=== PATIENT | female | born 1960 | race Caucasian/White ===

== ENCOUNTER 2016-12-10 18:55 | Emergency (ER) | payer MEDICARE ==
[~2016-12-10] VITALS: Ht 162.5 cm; Wt 61.2 kg
[~2016-12-10 18:55] MED LIST: AMOXICILLIN500 MG PO; ASPI-COR81 M1 PO; ASPIRIN ADULT L81 M2 PO; ATIVAN1 MG PO; AUGMENTIN 875875 MG PO; BUPROPION HCL150 M2 PO; CIPRO500 MG PO; CLONAZEPAM1 MG PO; CLONAZEPAM2 MG PO; DELTASONE20 M1 PO; DONEPEZIL HCL10 MG PO; EXELON4.6 MG/24 T; EXELON9.5 MG/24 T; FLONASE 0.05% 121 EA NAS; HYDROCHLOROTH12.5 MG PO; KEFLEX500 MG PO; LATU80TA PO; LIPITOR40 MG PO; LISINOPRIL HCTZ1 TA1 PO; LISINOPRIL40 MG PO; METHIMAZOLE10 MG PO; MIRALAX17 GM/DOSE PO; MIRTAZAPINE15 MG PO; MIRTAZAPINE30 MG PO; MOTRIN 800 MG E4 TAB PO; NORVASC2.5 MG PO; PEPCID20 MG PO; PREDNISONE10 MG PO; REMERON15 MG PO; REMERON30 MG PO; SEROQUEL100 MG PO; SEROQUEL50 MG PO; TAPAZOLE10 MG PO; TOBREX OPHTH S2.5 ML OPH; TOPAMAX25 MG PO; TOPAMAX50 MG PO; TRAMADOL50 MG PO; ULTRAM50 MG PO; VICODIN 5/500 505 MG PO; VOLTAREN75 MG PO; WELLBUTRIN100 MG PO; ZITHROMAX250 MG PO; ZOFRAN4 MG PO
== END 2016-12-10 20:46 | disposition home or self-care (01) ==
LOC: ED 18:55
DX: R13.10 Dysphagia, unspecified (principal); I10 Essential (primary) hypertension; E78.5 Hyperlipidemia, unspecified; Z88.6 Allergy status to analgesic agent; Z88.2 Allergy status to sulfonamides; Z79.899 Other long term (current) drug therapy

== ENCOUNTER → 2016-12-28 | Day surgery (SDC) | payer MEDICARE ==
[~2016-12-28] VITALS: Ht 162.5 cm; Wt 77.1 kg
[~2016-12-28] MED LIST changes: +MELATONIN10 M2 PO; +OMEPRAZOLE20 M2 PO; +VITAMIN D5000 UNI1 PO
--- NOTE | ~2016-12-28 | O ---
[place], [place] OPERATIVE NOTE NAME: SALOME CONTRERAS UNIT #: [id number] ROOM: DOCTOR: ADAM POPE MD BIRTHDATE: [birth year] DOS: GASTROENDOSCOPIC REPORT A 56-year-old who has presented with chief complaint of dyspepsia, dysphagia to solid food. ALLERGIES: TYLENOL AND SULFA. FAMILY HISTORY: Mother with colonic carcinoma. PAST SURGICAL HISTORY: Hysterectomy, tonsillectomy, adenoidectomy and neck disk and anna marie. PAST MEDICAL HISTORY: Hypertension, hypercholesterolemia, migraine, cephalalgia. PROCEDURE: Today's procedure part of investigation is panendoscopy plus esophageal dilation to size 18. PREMEDICATION: Versed and Diprivan. SCOPE: Olympus forward-viewing gastroscope Q10 video. REPORT: After putting the patient in the left lateral position and after application of lubricant to the scope, scope was introduced; thereafter, under direct visualization, advanced through the length of the esophagus without difficulty. Esophagus cervical and thoracic distally carefully examined. Gastric pouch was entered. Duodenal bulb, second and third part within normal limit. Antrum was biopsied for H. pylori, balloon size 18 swept through the esophagus. Highest point of resistance is cervical esophagus, dilated to size 18. The patient extubated, tolerated procedure well. IMPRESSION: Benign esophageal stricture, status post balloon dilation to size 18, gastritis. PLAN AND DISCUSSION: We are going to start her on omeprazole 20 mg 1 daily and clinically reassess. [place], [place] OPERATIVE NOTE NAME: SALOME CONTRERAS UNIT #: [id number] ROOM: DOCTOR: ADAM POPE MD BIRTHDATE: [birth year] ADAM POPE MD CM:OPRECORD:OPERATIVE NOTE [id number] ADAM POPE MD 12/28/16 1545 interface
[2016-12-28 12:45] VITALS: BP 120/80
[2016-12-28 13:45] VITALS: BP 92/60
[2016-12-28 14:00] VITALS: BP 92/60
[2016-12-28 14:17] VITALS: BP 92/60
== END | disposition home or self-care (01) ==
LOC: SDC 12-25 12:30
DX: K22.2 Esophageal obstruction (principal); K29.50 Unspecified chronic gastritis without bleeding; Z88.2 Allergy status to sulfonamides; Z88.8 Allergy status to other drugs, medicaments and biological substances; I10 Essential (primary) hypertension; E78.00 Pure hypercholesterolemia, unspecified; G43.909 Migraine, unspecified, not intractable, without status migrainosus; Z80.0 Family history of malignant neoplasm of digestive organs; Z90.710 Acquired absence of both cervix and uterus; F41.9 Anxiety disorder, unspecified; F32.9 Major depressive disorder, single episode, unspecified; Z90.49 Acquired absence of other specified parts of digestive tract; Z79.899 Other long term (current) drug therapy

== ENCOUNTER → 2017-01-01 | Outpatient (CLI) | payer MEDICARE ==
[2017-01-01 12:12] LABS: ALBUMIN 3.9 gm/dl (3.1-4.5); ALKALINE PHOSPHATASE 88 U/L (45-117); BILIRUBIN, DIRECT 0.2 mg/dL (0.0-0.2); BUN 15 mg/dl (7-24); CHLORIDE 103 mmol/L (98-107); CHOLESTEROL 171 mg/dL (<200); CREATININE 0.99 mg/dL (0.55-1.02); FREE T4 0.98 ng/dl (0.76-1.46); HDL CHOLESTEROL 76 mg/dl (40-60); LDL CHOLESTEROL 80 mg/dL (9-159); POTASSIUM 3.5 mmol/L (3.5-5.1); SGOT/AST 20 IU/L (3-35); SGPT/ALT 20 U/L (12-78); SODIUM 139 mmol/L (136-145); TOTAL PROTEIN 7.5 gm/dL (6.4-8.2); TRIGLYCERIDES 74 mg/dl (<150); VLDL CHOLESTEROL 15 mg/dL (6-40)
== END | disposition home or self-care (01) ==
LOC: LAB 11:22
PROVIDERS: Internal Medicine
DX: E78.5 Hyperlipidemia, unspecified (principal); E55.9 Vitamin D deficiency, unspecified; E04.1 Nontoxic single thyroid nodule; I10 Essential (primary) hypertension

== ENCOUNTER 2017-04-02 08:04 | Inpatient (IN) | payer MEDICARE ==
[~2017-04-02] VITALS: Ht 152.4 cm; Wt 68.0 kg
[2017-04-02] VITALS (18 sets, daily range): BP systolic 74–122; BP diastolic 43–85
--- NOTE | ~2017-04-02 | EKG ---
[place], [place] ELECTROCARDIOGRAM REPORT NAME: SALOME CONTRERAS UNIT #: [id number] ROOM: 420 DOCTOR: ABHILASH HICKS MD BIRTHDATE: [birth year] DOS: 04/03/2017 IMPRESSION: Normal sinus rhythm, nonspecific ST-T changes. Abnormal ECG. Abhilash Hicks MD CM:EKGRPT:ELECTROCARDIOGRAM REPORT [phone] ABHILASH HICKS MD
--- NOTE | ~2017-04-02 | EKG ---
[place], [place] ELECTROCARDIOGRAM REPORT NAME: SALOME CONTRERAS UNIT #: [id number] ROOM: 420 DOCTOR: ABHILASH HICKS MD BIRTHDATE: [birth year] DOS: 04/03/2017 IMPRESSION: Sinus rhythm; inferior infarct, age undetermined; nonspecific ST-T changes, abnormal ECG. No old EKGs available for comparison. Abhilash Hicks MD CM:EKGRPT:ELECTROCARDIOGRAM REPORT 1843 2201 ABHILASH HICKS MD
--- NOTE | ~2017-04-02 | EKG ---
[place], [place] ELECTROCARDIOGRAM REPORT NAME: SALOME CONTRERAS UNIT #: [id number] ROOM: 420 DOCTOR: ABHILASH HICKS MD BIRTHDATE: [birth year] DOS: 04/03/2017 IMPRESSION: Sinus rhythm, nonspecific ST-T changes. Abnormal ECG. No prior EKGs to compare. Abhilash Hicks MD CM:EKGRPT:ELECTROCARDIOGRAM REPORT [phone] ABHILASH HICKS MD
[~2017-04-02 08:04] MED LIST changes: -LISINOPRIL HCTZ1 TA1 PO; +LISINOPRIL-HCT1 EACH PO
[2017-04-02 08:29] LABS: BASO % 0.5 % (0.0-1.0); EOS # 0.1 10*3/uL (0.0-0.4); EOS % 1.5 % (1.0-4.0); HEMATOCRIT 34.4 % (37.0-47.0); HEMOGLOBIN 12.1 g/dl (12.0-16.0); LYMPH # 0.5 10*3/uL (1.3-4.4); LYMPH % 13.5 % (27.0-41.0); MEAN CELL VOLUME 84.9 fl (81.0-99.0); MEAN CORPUSCULAR HGB 29.9 pg (27.0-31.0); MEAN CORPUSCULAR HGB CONC 35.2 g/dl (33.0-37.0); MEAN PLATELET VOLUME 8.4 fl (9.6-12.3); MONO # 0.6 10*3/uL (0.1-1.0); NEUT # 2.8 10*3/uL (2.3-7.9); NEUT % 70.3 % (47.0-73.0); PLATELET COUNT AUTOMATED 128 10*3/uL (130-400); RED BLOOD COUNT 4.05 10*6/uL (4.10-5.10); RED CELL DISTRI WIDTH 12.6 % (0-14.5)
[2017-04-02] MEDS ORDERED: MELATONIN10 M2 PO (08:30)
[2017-04-02] MEDS ORDERED: METHIMAZOLE5 M1 PO (08:32)
[2017-04-02] MEDS ORDERED: DIVALPROEX SOD250 MG PO (08:35)
[2017-04-02 08:38] LABS: ACT PARTIAL THROMBO TIME 24.6 SECONDS (20.8-31.5)
[2017-04-02 08:45] LABS: ALBUMIN 3.9 gm/dl (3.1-4.5); ALKALINE PHOSPHATASE 76 U/L (45-117); BUN 13 mg/dl (7-24); CHLORIDE 102 mmol/L (98-107); CREATININE 0.88 mg/dL (0.55-1.02); POTASSIUM 3.6 mmol/L (3.5-5.1); SGOT/AST 24 IU/L (3-35); SGPT/ALT 33 U/L (12-78); SODIUM 136 mmol/L (136-145); TOTAL PROTEIN 7.1 gm/dL (6.4-8.2)
[2017-04-02 08:46] LABS: TROPONIN I < 0.015 ng/ml (<0.045)
[2017-04-02] MEDS ORDERED: OMEPRAZOLE D/R20 MG PO (12:21)
[2017-04-02] MEDS ORDERED: NORVASC2.5 MG PO (12:27)
[2017-04-02] MEDS ORDERED: VITAMIN C500 M4 PO (12:29)
[2017-04-03 06:58] LABS: BASO % 0.3 % (0.0-1.0); HEMATOCRIT 34.5 % (37.0-47.0); HEMOGLOBIN 11.8 g/dl (12.0-16.0); LYMPH # 0.4 10*3/uL (1.3-4.4); LYMPH % 12.1 % (27.0-41.0); MEAN CELL VOLUME 87.1 fl (81.0-99.0); MEAN CORPUSCULAR HGB 29.8 pg (27.0-31.0); MEAN CORPUSCULAR HGB CONC 34.2 g/dl (33.0-37.0); MEAN PLATELET VOLUME 8.3 fl (9.6-12.3); MONO # 0.5 10*3/uL (0.1-1.0); MONO % 13.3 % (3.0-9.0); NEUT # 2.6 10*3/uL (2.3-7.9); NEUT % 73.7 % (47.0-73.0); PLATELET COUNT AUTOMATED 127 10*3/uL (130-400); RED BLOOD COUNT 3.96 10*6/uL (4.10-5.10); RED CELL DISTRI WIDTH 12.4 % (0-14.5); WHITE BLOOD COUNT 3.5 10*3/uL (4.8-10.8)
[2017-04-03 07:00] LABS: BUN 15 mg/dl (7-24); CREATININE 0.94 mg/dL (0.55-1.02); POTASSIUM 3.6 mmol/L (3.5-5.1); SODIUM 135 mmol/L (136-145)
[2017-04-03 07:01] LABS: ALBUMIN 3.4 gm/dl (3.1-4.5); CHLORIDE 99 mmol/L (98-107); SGPT/ALT 33 U/L (12-78)
[2017-04-03 07:12] LABS: ALKALINE PHOSPHATASE 69 U/L (45-117); CHOLESTEROL 156 mg/dL (<200); FREE T4 0.99 ng/dl (0.76-1.46); HDL CHOLESTEROL 71 mg/dl (40-60); LDL CHOLESTEROL 74 mg/dL (9-159); PHOSPHOROUS 3.2 mg/dL (2.5-4.9); SGOT/AST 25 IU/L (3-35); TOTAL PROTEIN 6.7 gm/dL (6.4-8.2); TRIGLYCERIDES 57 mg/dl (<150); VLDL CHOLESTEROL 11 mg/dL (6-40)
[2017-04-03 07:52] LABS: VITAMIN D, 25-HYDROXY 24.2 ng/mL (30-100)
[2017-04-03 08:00] VITALS: BP 97/64
[2017-04-03 08:56] VITALS: BP 96/68
[2017-04-03 16:00] VITALS: BP 112/80
[2017-04-03 20:00] VITALS: BP 117/83
[2017-04-04] VITALS: BP 106/59
[2017-04-04 07:23] VITALS: BP 110/70
[2017-04-04 11:15] VITALS: BP 142/88
[2017-04-04] MEDS ORDERED: TAMIFLU 75MG CA75 MG PO (13:03)
== END 2017-04-04 14:05 | disposition home or self-care (01) | DRG 313 ==
LOC: ED 08:04 → 4E 11:26 → EDHOLD 11:26 → 4E 11:33
PROVIDERS: Emergency Medicine; Registered Nurse
DX: R07.89 Other chest pain (principal); I95.2 Hypotension due to drugs; F03.90 Unspecified dementia, unspecified severity, without behavioral disturbance, psychotic disturbance, mood disturbance, and anxiety; E05.90 Thyrotoxicosis, unspecified without thyrotoxic crisis or storm; E78.00 Pure hypercholesterolemia, unspecified; K21.9 Gastro-esophageal reflux disease without esophagitis; I10 Essential (primary) hypertension; G43.909 Migraine, unspecified, not intractable, without status migrainosus; E78.5 Hyperlipidemia, unspecified; E87.6 Hypokalemia; F32.9 Major depressive disorder, single episode, unspecified; E55.9 Vitamin D deficiency, unspecified; J10.1 Influenza due to other identified influenza virus with other respiratory manifestations; Z88.2 Allergy status to sulfonamides; Z88.8 Allergy status to other drugs, medicaments and biological substances; Z90.710 Acquired absence of both cervix and uterus; Z82.49 Family history of ischemic heart disease and other diseases of the circulatory system; Z80.8 Family history of malignant neoplasm of other organs or systems; Z79.899 Other long term (current) drug therapy; Z79.82 Long term (current) use of aspirin

== ENCOUNTER → 2017-04-29 | Outpatient (CLI) | payer MEDICARE ==
[~2017-04-29] MED LIST changes: +DIVALPROEX SOD250 MG PO; +METHIMAZOLE5 M1 PO; +OMEPRAZOLE D/R20 MG PO; +TAMIFLU 75MG CA75 MG PO; +VITAMIN C500 M4 PO
--- NOTE | ~2017-04-29 | ST ---
[place], [place] EXERCISE STRESS TEST REPORT [id number] UNIT #: [id number] ROOM: DOCTOR: HAL RIOS MD BIRTHDATE: [birth year] DOS: 04/29/2017 The patient underwent an exercise stress test today for evaluation of dizziness and near syncope. She was able to walk 7 minutes 30 seconds on a full Jono protocol and stopped for fatigue. Her resting heart rate of 56 sadie to a maximum of 152 which represented 94% of her maximum predicted heart rate at a workload of 8.8 mets. She stopped for fatigue and had no chest pain. The resting electrocardiogram showed anterior T-wave inversions. With exercise, this did improve; however, she did develop up to 0.7 mm of flat ups upsloping ST segment depression in the inferior and lateral leads. This is equivocal electrocardiographic response to exercise. The Russo treadmill score was 4 indicating a moderate risk for future events. One minute prior to the completion of the exercise protocol, the patient was given radionuclide intravenously. IMPRESSION: 1. Good exercise capacity without chest pain. The patient did have an equivocal electrocardiographic response to exercise. 2. Russo treadmill score of 4 indicating a moderate risk for future cardiac events. 3. Radionuclide injected. Please see the separate imaging report for further details of the patient's stress test results. HAL RIOS MD CM:STRESS:EXERCISE STRESS TEST REPORT [id number] HAL RIOS MD
--- NOTE | ~2017-04-29 | HM ---
[place], [place] HOLTER MONITOR REPORT [id number] UNIT #: [id number] ROOM: DOCTOR: HAL RIOS MD BIRTHDATE: [birth year] DOS: 04/30/2017 Study was done from 04/29/2017 to 04/30/2017. The recording was analyzed and was interpreted and dictated on 04/30/2017. INDICATIONS: Syncope and palpitations with dizziness and unsteadiness. FINDINGS: The basic rhythm throughout the monitor was sinus rhythm. The average heart rate was 67. Heart rate varied from 43-120 beats per minute. The patient had no ventricular arrhythmias recorded. The patient had rare premature atrial contractions (34 in 24 hours). There was no supraventricular tachycardia, the longest pause was 1.8 seconds. The patient had multiple complaints during the recording, including heart beating harder, shaky, few strong heartbeats, dizzy, cannot walk straight, had to hold the romano to walk, dizzy and threw up, shortness of breath, and anxious. All of these occurred during sinus rhythm with the maximum heart rate during the complaints being 100. Bradycardic episodes occurred mostly during hours of sleep and were not associated with any complaints. When she complained of vomiting, she did have sinus bradycardia at a rate of 54. IMPRESSION: Normal 24-hour Holter monitor. HAL RIOS MD CM:HOLTER:HOLTER MONITOR REPORT 58 12 HAL RIOS MD
== END | disposition home or self-care (01) ==
LOC: CARD 02:21
DX: I49.9 Cardiac arrhythmia, unspecified (principal)

== ENCOUNTER 2017-07-15 19:16 | Emergency (ER) | payer MEDICARE ==
[~2017-07-15] VITALS: Ht 162.5 cm; Wt 72.6 kg
[2017-07-15] MEDS ORDERED: Depakote250 MG PO (19:45)
[2017-07-15] MEDS ORDERED: TOPAMAX50 MG PO (19:45)
[2017-07-15 19:49] LABS: BASO # 0.1 10*3/uL (0.0-0.1); BASO % 0.9 % (0.0-1.0); EOS # 0.1 10*3/uL (0.0-0.4); HEMATOCRIT 34.6 % (37.0-47.0); HEMOGLOBIN 12.2 g/dl (12.0-16.0); LYMPH # 2.4 10*3/uL (1.3-4.4); LYMPH % 41.8 % (27.0-41.0); MEAN CELL VOLUME 84.8 fl (81.0-99.0); MEAN CORPUSCULAR HGB 29.9 pg (27.0-31.0); MEAN CORPUSCULAR HGB CONC 35.3 g/dl (33.0-37.0); MEAN PLATELET VOLUME 8.5 fl (9.6-12.3); MONO # 0.6 10*3/uL (0.1-1.0); MONO % 10.1 % (3.0-9.0); NEUT # 2.5 10*3/uL (2.3-7.9); NEUT % 44.7 % (47.0-73.0); PLATELET COUNT AUTOMATED 174 10*3/uL (130-400); RED BLOOD COUNT 4.08 10*6/uL (4.10-5.10); RED CELL DISTRI WIDTH 12.5 % (0-14.5); WHITE BLOOD COUNT 5.6 10*3/uL (4.8-10.8)
[2017-07-15 20:00] LABS: ACT PARTIAL THROMBO TIME 25.4 SECONDS (20.8-31.5)
[2017-07-15 20:04] LABS: ALBUMIN 3.9 gm/dl (3.1-4.5); ALKALINE PHOSPHATASE 70 U/L (45-117); BUN 15 mg/dl (7-24); CHLORIDE 94 mmol/L (98-107); CREATININE 0.89 mg/dL (0.55-1.02); POTASSIUM 3.6 mmol/L (3.5-5.1); SGOT/AST 23 IU/L (3-35); SGPT/ALT 25 U/L (12-78); SODIUM 130 mmol/L (136-145); TOTAL PROTEIN 6.9 gm/dL (6.4-8.2)
[2017-07-15 20:06] LABS: TROPONIN I < 0.015 ng/ml (<0.045)
== END 2017-07-15 21:14 | disposition home or self-care (01) ==
LOC: ED 19:16
PROVIDERS: Student in an Organized Health Care Education/Training Program
DX: R00.2 Palpitations (principal); K21.9 Gastro-esophageal reflux disease without esophagitis; I10 Essential (primary) hypertension; E78.00 Pure hypercholesterolemia, unspecified; E78.5 Hyperlipidemia, unspecified; E87.6 Hypokalemia; Z88.2 Allergy status to sulfonamides; Z88.8 Allergy status to other drugs, medicaments and biological substances; Z79.899 Other long term (current) drug therapy; Z90.89 Acquired absence of other organs; Z90.710 Acquired absence of both cervix and uterus

== ENCOUNTER 2017-10-09 17:56 | Emergency (ER) | payer MEDICARE ==
[~2017-10-09] VITALS: Ht 162.5 cm; Wt 72.6 kg
[~2017-10-09 17:56] MED LIST changes: +Depakote250 MG PO
[2017-10-09] MEDS ORDERED: REMERON15 M2 PO (18:11)
[2017-10-09] MEDS ORDERED: TOPAMAX50 MG PO (18:12)
[2017-10-09 18:23] LABS: BILIRUBIN NEGATIVE (NEGATIVE); BLOOD NEGATIVE (NEGATIVE); CLARITY CLEAR (CLEAR); COLOR YELLOW (YELLOW); GLUCOSE NEGATIVE (NEGATIVE); KETONE NEGATIVE (NEGATIVE); LEUKO ESTERASE TRACE (NEGATIVE); NITRITE NEGATIVE (NEGATIVE); PH 6.5 (5.0-9.0); SPECIFIC GRAVITY <= 1.005 (1.005-1.030); UROBILINOGEN 0.2 E.U./dl (0.2-1.0)
[2017-10-09 18:30] LABS: BACTERIA TRACE; EPITHELIAL CELLS 0-2
[2017-10-09 18:57] LABS: BASO # 0.1 10*3/uL (0.0-0.1); BASO % 0.9 % (0.0-1.0); EOS # 0.1 10*3/uL (0.0-0.4); EOS % 1.8 % (1.0-4.0); HEMATOCRIT 34.9 % (37.0-47.0); LYMPH # 1.9 10*3/uL (1.3-4.4); LYMPH % 35.6 % (27.0-41.0); MEAN CORPUSCULAR HGB 29.6 pg (27.0-31.0); MEAN CORPUSCULAR HGB CONC 34.4 g/dl (33.0-37.0); MEAN PLATELET VOLUME 8.9 fl (9.6-12.3); MONO # 0.5 10*3/uL (0.1-1.0); MONO % 9.9 % (3.0-9.0); NEUT # 2.8 10*3/uL (2.3-7.9); NEUT % 51.4 % (47.0-73.0); PLATELET COUNT AUTOMATED 176 10*3/uL (130-400); RED BLOOD COUNT 4.06 10*6/uL (4.10-5.10); RED CELL DISTRI WIDTH 12.8 % (0-14.5); WHITE BLOOD COUNT 5.5 10*3/uL (4.8-10.8)
[2017-10-09 18:58] LABS: URINE AMPHETAMINES < 1000 (1000ng/ml); URINE BARBITURATES < 200 (200ng/ml); URINE BENZODIAZEPINES < 200 (200ng/ml); URINE CANNABINOIDS (THC) < 50 (50ng/ml); URINE COCAINE < 300 (300ng/ml); URINE METHADONE < 300 (300ng/ml); URINE OPIATES < 300 (300ng/ml)
[2017-10-09 19:00] LABS: URINE PHENCYCLIDINE < 25 (25ng/ml)
[2017-10-09 19:11] LABS: ALBUMIN 3.9 gm/dl (3.1-4.5); ALKALINE PHOSPHATASE 75 U/L (45-117); BUN 14 mg/dl (7-24); CHLORIDE 108 mmol/L (98-107); CREATININE 0.95 mg/dL (0.55-1.02); POTASSIUM 3.3 mmol/L (3.5-5.1); SGOT/AST 13 IU/L (3-35); SGPT/ALT 18 U/L (12-78); SODIUM 139 mmol/L (136-145); TOTAL PROTEIN 6.9 gm/dL (6.4-8.2)
[2017-10-09 19:13] LABS: VALPROIC ACID (DEPAKENE) 9.7 ug/ml (50-100)
[2017-10-09 19:20] LABS: ETHYL ALCOHOL < 3.0 mg/dl (<3)
== END 2017-10-09 20:26 | disposition home health service (06) ==
LOC: ED 17:56
PROVIDERS: Emergency Medicine
DX: F31.60 Bipolar disorder, current episode mixed, unspecified (principal); I10 Essential (primary) hypertension; K21.9 Gastro-esophageal reflux disease without esophagitis; F03.90 Unspecified dementia, unspecified severity, without behavioral disturbance, psychotic disturbance, mood disturbance, and anxiety; E78.00 Pure hypercholesterolemia, unspecified; E78.5 Hyperlipidemia, unspecified; E05.90 Thyrotoxicosis, unspecified without thyrotoxic crisis or storm; Z90.710 Acquired absence of both cervix and uterus; Z90.89 Acquired absence of other organs; Z98.890 Other specified postprocedural states; Z88.2 Allergy status to sulfonamides; Z88.6 Allergy status to analgesic agent; Z79.899 Other long term (current) drug therapy

== ENCOUNTER 2017-10-09 19:46 | Inpatient (IN) | payer MEDICARE ==
[~2017-10-09] VITALS: Ht 163.8 cm; Wt 72.6 kg
--- NOTE | ~2017-10-09 | PR ---
[place], [place] PROGRESS NOTE [id number] UNIT #: [id number] ROOM: 314 DOCTOR: RICARDA SAAVEDRA MD BIRTHDATE: [birth year] DOS: 10/11/2017 CHIEF COMPLAINT: "I feel really good." SUMMARY OF THE VISIT: The patient was interviewed as she sat in the dining area, engaging in group activity. She stopped and engaged in pleasant conversation with me stating that she slept better. She is feeling better. Her mood is more stable, less irritable, less depressed. She convincingly denies any medication side effects and no sedation, somnolence, extrapyramidal symptoms or tardive dyskinesia are noted. MENTAL STATUS: She is alert and oriented. Mood does seem to be trending towards euthymia. Affect is more appropriate. There is no javi or hypomania. There are no gross psychotic symptoms. Short, intermediate, and long-term memory are intact. PLAN: I will go ahead and increase her Vraylar to 4.5 mg at bedtime. Continue to engage in individual and james milieu activity, returning then to the least restrictive environment when psychiatrically stable. RICARDA SAAVEDRA MD CM:PNTRANS [id number] RICARDA SAAVEDRA MD 10/11/172038 interface
--- NOTE | ~2017-10-09 | WRIGHTHP ---
[place], [place] PATIENT HISTORY AND PHYSICAL EXAM NAME: SALOME CONTRERAS [facility] #: [id number] UNIT #: [id number] ROOM: 314 DOCTOR: RICARDA SAAVEDRA MD BIRTHDATE: [birth year] DOS: 10/10/2017 INITIAL PSYCHIATRIC EVALUATION CHIEF COMPLAINT: "I have been depressed, anxious and rivera." HISTORY OF PRESENT ILLNESS: This is a 57-year-old white female known to me from my previous practice in [place], [place], who presented to the Emergency Room at [facility] with a chief complaint of increased depression with severe mood lability. The patient reports that she has been decompensating over the last several weeks prior to this admission stating that she has been in a mixed state of depression and javi; one moment, she is feeling extremely irritable and angry; the next minute, she is in a deep depression. She endorsed poor sleep and appetite, anergia, anhedonia, hopeless, helpless feelings, crying spells, and inability to cope. She does report that her current medication regimen is ineffective. PAST MEDICAL HISTORY: Remarkable for GERD, hyperlipidemia, hypertension, hyperthyroidism, rheumatic fever, sarcoidosis, vitamin D deficiency. PAST SOCIAL HISTORY: She does not drink alcohol, use illicit drugs, smoke cigarettes or use smokeless tobacco products. ALLERGIES: She lists allergies to SULFA and ACETAMINOPHEN. FAMILY HISTORY: There is no significant past psychiatric family history. STRENGTHS: Good verbal skills, ambulatory and relatively healthy. WEAKNESSES: Long-term history of bipolar disorder and poor coping skills. MENTAL STATUS: Upon admission, she is alert and oriented. Mood does seem to be somewhat labile. She was happy one moment and the next minute, she appeared extremely down and despondent. Anxiety was not evident. There was no agitation or aggression; however, nor was there any overt signs of psychosis. I did not see any auditory or visual hallucinations. No delusions, no paranoia. Memory for the most part seemed relatively intact, although she does have issues recounting what medication she had been on in the past. DIAGNOSIS UPON ADMISSION: Bipolar type 1, mixed. PLAN: Routine screening examination show her to have a subtherapeutic vitamin D level of 25.9. We will start vitamin D 50,000 International Units weekly. I have already started her on Vraylar 1.5 mg at bedtime, which I will increase to 3 mg at bedtime targeting a 6 mg at bedtime dose. I will discontinue her Depakote 500 mg 3 times daily and use Depakote ER 1500 mg at bedtime to see if this will also induce sleep, will allow her to use her melatonin p.r.n. for sleep that she brought from home. We will engage in individual and james milieu activity with the plan, then to return to the least restrictive environment when psychiatrically stable. [place], [place] PATIENT HISTORY AND PHYSICAL EXAM NAME: SALOME CONTRERAS UNIT #: [id number] ROOM: [facility] DOCTOR: RICARDA SAAVEDRA MD BIRTHDATE: [birth year] RICARDA SAAVEDRA MD CM:HISPHYS:PATIENT HISTORY AND PHYSICAL EXAMINATION 1117 1145 RICARDA SAAVEDRA MD 10/10/17 1143 interface
--- NOTE | ~2017-10-09 | DS ---
[place], [place] DISCHARGE SUMMARY NAME: SALOME CONTRERAS [facility] #: [id number] UNIT #: [id number] ROOM: 314 DOCTOR: RICARDA SAAVEDRA MD BIRTHDATE: [birth year] DOS: 10/12/2017 CHIEF COMPLAINT: "I have been depressed, anxious and rivera" HISTORY OF PRESENT ILLNESS: This is a 57-year-old white female known to me from my previous practice in [place], [place], who presented to the Emergency Room at [facility] with the chief complaint of increased depression with severe mood lability. She reports that she has been decompensating over the last several weeks prior to this admission, believing that she is in a mixed state of depression and javi. She will feel irritable and angry, one minute happy, depression in the following. She endorses poor sleep and appetite, anergia, anhedonia, hopeless, helpless feelings, crying spells, and inability to cope. She also feels that her current medication regimen is ineffective. PAST MEDICAL HISTORY: Remarkable for allergies to SULFA AND ACETAMINOPHEN. Also, GERD, hyperlipidemia, hypertension, hypothyroidism, rheumatic fever, sarcoidosis and vitamin D deficiency. SOCIAL HISTORY: She does not drink alcohol, use illicit drugs, smoke cigarettes or use smokeless tobacco products. SUMMARY OF HOSPITAL COURSE: The patient was admitted to the hospital where her vitamin D level was found to be low at 25.9 and vitamin D 50,000 international units weekly was started. She was started on Vraylar 1.5 mg at bedtime and Depakote 500 mg 3 times a day; however, she continued to complain of poor sleep, so the Depakote was changed to Depakote ER 1500 mg at bedtime as the Vraylar was increased to 3 and then subsequently 4.5 mg at bedtime. With these medication changes, her mood became stable. She no longer was depressed nor was she anxious or manic. She convincingly denied medication side effects stating she had no sedation, somnolence, extrapyramidal symptoms or tardive dyskinesia. She voiced positive plans for the future. There are no suicidal thoughts, homicidal thoughts or any self-injurious thoughts. MENTAL STATUS AT DISCHARGE: She is alert and oriented to person, place, and time. Mood was euthymic. Affect appropriate. No javi, hypomania or psychosis was noted. Short, intermediate, and long-term memory were fully intact. DIAGNOSES AT DISCHARGE: Bipolar type 2. PLAN: At the time of discharge, she is medically and psychiatrically stable. All of her prescriptions have been printed and will be sent with her. I have suggested that she follow up with [facility]. [place], [place] DISCHARGE SUMMARY NAME: SALOME CONTRERAS UNIT #: [id number] ROOM: [facility] DOCTOR: RICARDA SAAVEDRA MD BIRTHDATE: [birth year] RICARDA SAAVEDRA MD CM:OZIEL [phone] RICARDA SAAVEDRA MD 10/12/172031 interface
[~2017-10-09 19:46] MED LIST changes: +REMERON15 M2 PO
[2017-10-09 21:11] VITALS: BP 142/87
[2017-10-09 21:37] VITALS: BP 142/87
[2017-10-10 07:06] LABS: BUN 13 mg/dl (7-24); CHLORIDE 107 mmol/L (98-107); CHOLESTEROL 144 mg/dL (<200); CREATININE 0.92 mg/dL (0.55-1.02); HDL CHOLESTEROL 69 mg/dl (40-60); LDL CHOLESTEROL 60 mg/dL (9-159); POTASSIUM 3.5 mmol/L (3.5-5.1); SODIUM 139 mmol/L (136-145); TRIGLYCERIDES 77 mg/dl (<150); VLDL CHOLESTEROL 15 mg/dL (6-40)
[2017-10-10 07:14] LABS: FREE T4 0.99 ng/dl (0.76-1.46)
[2017-10-10 07:48] VITALS: BP 131/77
[2017-10-10 07:54] LABS: VITAMIN D, 25-HYDROXY 25.9 ng/mL (30-100)
[2017-10-10 20:09] VITALS: BP 114/80
[2017-10-11 07:51] VITALS: BP 108/68; BP 124/84
[2017-10-11 19:50] VITALS: BP 116/70
[2017-10-12 07:47] VITALS: BP 112/75; BP 128/78
[2017-10-12] MEDS ORDERED: DIVALPROEX SOD500 M1 PO (11:41)
[2017-10-12] MEDS ORDERED: VRAYLAR4.5 MG PO (11:41)
[2017-10-12] MEDS ORDERED: Vitamin D PO (11:41)
== END 2017-10-12 13:22 | disposition home or self-care (01) | DRG 885 ==
LOC: 3N 19:46
PROVIDERS: Psychiatry & Neurology Psychiatry
DX: F31.81 Bipolar II disorder (principal); F03.90 Unspecified dementia, unspecified severity, without behavioral disturbance, psychotic disturbance, mood disturbance, and anxiety; D86.9 Sarcoidosis, unspecified; I10 Essential (primary) hypertension; E78.5 Hyperlipidemia, unspecified; E78.00 Pure hypercholesterolemia, unspecified; K21.9 Gastro-esophageal reflux disease without esophagitis; E05.90 Thyrotoxicosis, unspecified without thyrotoxic crisis or storm; E55.9 Vitamin D deficiency, unspecified; Z88.2 Allergy status to sulfonamides; Z88.6 Allergy status to analgesic agent; Z90.710 Acquired absence of both cervix and uterus; Z98.891 History of uterine scar from previous surgery; Z82.49 Family history of ischemic heart disease and other diseases of the circulatory system; Z84.89 Family history of other specified conditions; Z86.79 Personal history of other diseases of the circulatory system

== ENCOUNTER → 2017-10-23 | Outpatient (CLI) | payer MEDICARE ==
[~2017-10-23] MED LIST changes: +DIVALPROEX SOD500 M1 PO; +VRAYLAR4.5 MG PO; +Vitamin D PO
== END | disposition home or self-care (01) ==
LOC: MRI 10:28
DX: R41.0 Disorientation, unspecified (principal); F03.90 Unspecified dementia, unspecified severity, without behavioral disturbance, psychotic disturbance, mood disturbance, and anxiety; R68.89 Other general symptoms and signs; R41.3 Other amnesia; Z91.14 Patient's other noncompliance with medication regimen

== ENCOUNTER 2018-03-17 19:53 | Emergency (ER) | payer MEDICARE ==
[~2018-03-17] VITALS: Ht 162.5 cm; Wt 72.6 kg
[2018-03-17] MEDS ORDERED: CLINDAMYCIN150 MG PO (19:59)
== END 2018-03-17 20:07 | disposition home or self-care (01) ==
LOC: ED 19:53
DX: K02.9 Dental caries, unspecified (principal); K21.9 Gastro-esophageal reflux disease without esophagitis; E78.00 Pure hypercholesterolemia, unspecified; I10 Essential (primary) hypertension; E05.90 Thyrotoxicosis, unspecified without thyrotoxic crisis or storm; Z88.2 Allergy status to sulfonamides; Z88.6 Allergy status to analgesic agent; Z79.899 Other long term (current) drug therapy

== ENCOUNTER → 2018-04-22 | Outpatient (CLI) | payer MEDICARE ==
[~2018-04-22] MED LIST changes: +CLINDAMYCIN150 MG PO
== END | disposition home or self-care (01) ==
LOC: MAMMO 15:13
DX: Z12.31 Encounter for screening mammogram for malignant neoplasm of breast (principal); I10 Essential (primary) hypertension

== ENCOUNTER → 2018-05-06 | Outpatient (CLI) | payer MEDICARE ==
[~2018-05-06] MED LIST changes: +PROAIR HFA8.5 GM INH; +TESSALON PERLE100 M1 PO
== END | disposition home or self-care (01) ==
LOC: MAMMO 13:15
DX: R92.8 Other abnormal and inconclusive findings on diagnostic imaging of breast (principal)

== ENCOUNTER 2018-05-19 04:02 | Emergency (ER) | payer MEDICARE ==
[~2018-05-19] VITALS: Ht 162.5 cm; Wt 72.6 kg
[~2018-05-19 04:02] MED LIST changes: -PROAIR HFA8.5 GM INH; -TESSALON PERLE100 M1 PO
[2018-05-19 04:44] LABS: BASO % 0.5 % (0.0-1.0); EOS # 0.3 10*3/uL (0.0-0.4); EOS % 4.7 % (1.0-4.0); HEMATOCRIT 39.9 % (37.0-47.0); HEMOGLOBIN 13.5 g/dl (12.0-16.0); LYMPH # 1.5 10*3/uL (1.3-4.4); MEAN CELL VOLUME 84.9 fl (81.0-99.0); MEAN CORPUSCULAR HGB 28.7 pg (27.0-31.0); MEAN CORPUSCULAR HGB CONC 33.8 g/dl (33.0-37.0); MEAN PLATELET VOLUME 8.4 fl (9.6-12.3); MONO # 0.5 10*3/uL (0.1-1.0); MONO % 7.9 % (3.0-9.0); NEUT # 3.8 10*3/uL (2.3-7.9); NEUT % 61.1 % (47.0-73.0); PLATELET COUNT AUTOMATED 191 10*3/uL (130-400); RED CELL DISTRI WIDTH 12.7 % (0-14.5); WHITE BLOOD COUNT 6.2 10*3/uL (4.8-10.8)
[2018-05-19 04:59] LABS: ALBUMIN 3.4 gm/dl (3.1-4.5); ALKALINE PHOSPHATASE 99 U/L (45-117); BUN 14 mg/dl (7-24); CHLORIDE 104 mmol/L (98-107); CREATININE 0.88 mg/dL (0.55-1.02); POTASSIUM 4.1 mmol/L (3.5-5.1); SGOT/AST 14 IU/L (3-35); SGPT/ALT 17 U/L (12-78); SODIUM 138 mmol/L (136-145); TOTAL PROTEIN 7.6 gm/dL (6.4-8.2)
== END 2018-05-19 06:53 | disposition left against medical advice (07) ==
LOC: ED 04:02
PROVIDERS: Student in an Organized Health Care Education/Training Program
DX: K04.7 Periapical abscess without sinus (principal); K21.9 Gastro-esophageal reflux disease without esophagitis; E78.00 Pure hypercholesterolemia, unspecified; I10 Essential (primary) hypertension; E05.90 Thyrotoxicosis, unspecified without thyrotoxic crisis or storm; Z90.710 Acquired absence of both cervix and uterus; Z88.2 Allergy status to sulfonamides; Z88.6 Allergy status to analgesic agent; Z79.899 Other long term (current) drug therapy

== ENCOUNTER → 2018-05-27 | Outpatient (CLI) | payer MEDICARE ==
[~2018-05-27] MED LIST changes: +PROAIR HFA8.5 GM INH; +TESSALON PERLE100 M1 PO
--- NOTE | ~2018-05-27 | EKG ---
[place], [place] ELECTROCARDIOGRAM REPORT NAME: SALOME CONTRERAS UNIT #: [id number] ROOM: DOCTOR: HUE DRAFT REPORT BIRTHDATE: [birth year] [facility] Test Date: 2018-05-27 Test Time: 16:10:15 Pat Name: SALOME CONTRERAS Department: OPF Room: Gender: F [employer] Operator: EKG.IA : 1960 Requested By: GABRIEL BUSTILLO Order Number: [id number] Reading MD: Francisco Rm MD Measurements Intervals [place] Rate: 70 P: 52 [place]: 158 QRS: -13 QRSD: 97 T: -1 QT: 390 QTc: 421 Interpretive Statements Sinus rhythm Borderline repolarization abnormality Baseline wander in lead(s) II,III,aVF Electronically Signed On 05-29-2018 7:47:29 PST by Francisco Rm MD CM:EKGRPT:ELECTROCARDIOGRAM REPORT 1610 0747 GABRIEL SWANN DRAFT REPORT GABRIEL BUSTILLO
== END | disposition home or self-care (01) ==
LOC: CARD 15:57
DX: I10 Essential (primary) hypertension (principal); R06.02 Shortness of breath

== ENCOUNTER → 2018-06-19 | Outpatient (CLI) | payer MEDICARE | END | disposition home or self-care (01) | LOC: CARD 13:00 | DX: I10 Essential (primary) hypertension (principal); R06.02 Shortness of breath ==

== ENCOUNTER 2018-07-08 16:10 | Emergency (ER) | payer MEDICARE ==
[~2018-07-08] VITALS: Ht 162.5 cm; Wt 77.1 kg
[~2018-07-08 16:10] MED LIST changes: -PROAIR HFA8.5 GM INH; -TESSALON PERLE100 M1 PO
[2018-07-08] MEDS ORDERED: TESSALON PERLE100 M1 PO (17:50)
[2018-07-08] MEDS ORDERED: PROAIR HFA8.5 GM INH (17:50)
[2018-07-08] MEDS ORDERED: ZITHROMAX250 MG PO (17:50)
== END 2018-07-08 18:05 | disposition home or self-care (01) ==
LOC: ED 16:10
DX: R05 Cough (principal); Z98.890 Other specified postprocedural states; Z90.710 Acquired absence of both cervix and uterus; Z79.899 Other long term (current) drug therapy; Z88.2 Allergy status to sulfonamides; Z88.6 Allergy status to analgesic agent

== ENCOUNTER 2019-11-26 18:20 | Emergency (ER) | payer MEDICARE ==
[~2019-11-26 18:20] MED LIST changes: +PROAIR HFA8.5 GM INH; +TESSALON PERLE100 M1 PO
[2019-11-26 20:39] LABS: BASO % 0.5 % (0.0-1.0); EOS # 1.1 10*3/uL (0.0-0.4); EOS % 14.2 % (1.0-4.0); HEMATOCRIT 37.9 % (37.0-47.0); LYMPH # 2.4 10*3/uL (1.3-4.4); LYMPH % 32.9 % (27.0-41.0); MEAN CELL VOLUME 85.6 fl (81.0-99.0); MEAN CORPUSCULAR HGB 28.2 pg (27.0-31.0); MEAN PLATELET VOLUME 9.4 fl (9.6-12.3); MONO # 0.6 10*3/uL (0.1-1.0); MONO % 8.6 % (3.0-9.0); NEUT # 3.2 10*3/uL (2.3-7.9); NEUT % 43.5 % (47.0-73.0); PLATELET COUNT AUTOMATED 190 10*3/uL (130-400); RED BLOOD COUNT 4.43 10*6/uL (4.10-5.10); RED CELL DISTRI WIDTH 14.1 % (0-14.5); WHITE BLOOD COUNT 7.4 10*3/uL (4.8-10.8)
[2019-11-26 20:55] LABS: ALBUMIN 3.8 gm/dl (3.1-4.5); CREATININE 1.19 mg/dL (0.55-1.02); POTASSIUM 3.4 mmol/L (3.5-5.1); TOTAL PROTEIN 7.4 gm/dL (6.4-8.2)
[2019-11-26] MEDS ORDERED: Meclizine25 MG PO (21:49)
== END 2019-11-26 22:03 | disposition home or self-care (01) ==
LOC: ED 18:20
PROVIDERS: Nurse Practitioner Family
DX: R42 Dizziness and giddiness (principal); R11.0 Nausea; R05 Cough; K21.9 Gastro-esophageal reflux disease without esophagitis; I10 Essential (primary) hypertension; E78.5 Hyperlipidemia, unspecified; E78.00 Pure hypercholesterolemia, unspecified; Z88.2 Allergy status to sulfonamides; Z88.6 Allergy status to analgesic agent; Z79.899 Other long term (current) drug therapy

== ENCOUNTER → 2019-12-30 | Outpatient (CLI) | payer MEDICARE ==
[~2019-12-30] MED LIST changes: +Meclizine25 MG PO
== END | disposition home or self-care (01) ==
LOC: MRI 14:00
PROVIDERS: ATTEND Physician Assistant Medical
DX: R41.3 Other amnesia (principal)

== ENCOUNTER → 2020-02-09 | Outpatient (CLI) | payer MEDICARE | END | disposition home or self-care (01) | LOC: COVID19 16:04 | PROVIDERS: ATTEND Nurse Practitioner Family | DX: Z20.828 Contact with and (suspected) exposure to other viral communicable diseases (principal); J02.9 Acute pharyngitis, unspecified; R09.81 Nasal congestion ==

== ENCOUNTER → 2020-04-19 | Outpatient (CLI) | payer MEDICARE | END | disposition home or self-care (01) | LOC: RAD 13:49 | PROVIDERS: ATTEND Nurse Practitioner Family | DX: M25.512 Pain in left shoulder (principal); M54.5 Low back pain; M25.552 Pain in left hip ==

== ENCOUNTER → 2020-05-24 | Outpatient (CLI) | payer MEDICARE ==
[2020-05-24 16:56] LABS: BASO % 0.7 % (0.0-1.0); EOS # 0.6 10*3/uL (0.0-0.4); EOS % 10.8 % (1.0-4.0); LYMPH # 1.7 10*3/uL (1.3-4.4); LYMPH % 29.3 % (27.0-41.0); MEAN CELL VOLUME 85.1 fl (81.0-99.0); MEAN CORPUSCULAR HGB 28.1 pg (27.0-31.0); MEAN PLATELET VOLUME 8.7 fl (9.6-12.3); MONO # 0.5 10*3/uL (0.1-1.0); MONO % 7.9 % (3.0-9.0); NEUT % 50.4 % (47.0-73.0); PLATELET COUNT AUTOMATED 218 10*3/uL (130-400); RED CELL DISTRI WIDTH 13.3 % (0-14.5); WHITE BLOOD COUNT 5.8 10*3/uL (4.8-10.8)
[2020-05-24 17:27] LABS: ALBUMIN 3.6 gm/dl (3.1-4.5); ALKALINE PHOSPHATASE 107 U/L (45-117); BUN 18 mg/dl (7-24); CHLORIDE 110 mmol/L (98-107); CHOLESTEROL 192 mg/dL (<200); CREATININE 0.97 mg/dL (0.55-1.02); HDL CHOLESTEROL 57 mg/dl (40-60); LDL CHOLESTEROL 85 mg/dL (9-159); POTASSIUM 3.6 mmol/L (3.5-5.1); SGOT/AST 17 IU/L (3-35); SGPT/ALT 29 U/L (12-78); SODIUM 142 mmol/L (136-145); TOTAL PROTEIN 7.6 gm/dL (6.4-8.2); TRIGLYCERIDES 252 mg/dl (<150); VLDL CHOLESTEROL 50 mg/dL (6-40)
== END | disposition home or self-care (01) ==
LOC: LAB 16:42
PROVIDERS: ATTEND Nurse Practitioner Family
DX: I10 Essential (primary) hypertension (principal); E78.5 Hyperlipidemia, unspecified; E03.9 Hypothyroidism, unspecified

== ENCOUNTER → 2020-10-10 | Outpatient (CLI) | payer MEDICARE ==
[2020-10-10 19:15] LABS: BILIRUBIN Negative (Negative); BLOOD Negative (Negative); CLARITY Clear (Clear); COLOR Yellow (Yellow); GLUCOSE Negative (Negative); KETONE Negative (Negative); LEUKO ESTERASE Negative (Negative); NITRITE Negative (Negative); SPECIFIC GRAVITY <= 1.005 (1.001-1.030); UROBILINOGEN 0.2 E.U./dl (0.0-1.0)
[2020-10-10 19:18] LABS: PH 8.5 (4.5-8.0)
[2020-10-10 19:20] LABS: BASO % 0.7 % (0.0-1.0); EOS # 0.2 10*3/uL (0.0-0.4); HEMATOCRIT 39.9 % (37.0-47.0); LYMPH # 1.6 10*3/uL (1.3-4.4); LYMPH % 28.5 % (27.0-41.0); MEAN CORPUSCULAR HGB 28.2 pg (27.0-31.0); MEAN CORPUSCULAR HGB CONC 33.6 g/dl (33.0-37.0); MONO # 0.6 10*3/uL (0.1-1.0); MONO % 9.9 % (3.0-9.0); NEUT # 3.2 10*3/uL (2.3-7.9); PLATELET COUNT AUTOMATED 216 10*3/uL (130-400); RED BLOOD COUNT 4.75 10*6/uL (4.10-5.10); RED CELL DISTRI WIDTH 13.2 % (0-14.5); WHITE BLOOD COUNT 5.6 10*3/uL (4.8-10.8)
[2020-10-10 19:26] LABS: BACTERIA TRACE; EPITHELIAL CELLS 0-2; RBC 0-2 rbc/hpf (0-2); WBC 0-2 wbc/hpf (0-5)
[2020-10-10 19:30] LABS: ALBUMIN 3.8 gm/dl (3.1-4.5); ALKALINE PHOSPHATASE 104 U/L (45-117); BUN 12 mg/dl (7-24); CHLORIDE 98 mmol/L (98-107); CREATININE 0.92 mg/dL (0.55-1.02); POTASSIUM 4.2 mmol/L (3.5-5.1); SGOT/AST 13 IU/L (3-35); SGPT/ALT 23 U/L (12-78); SODIUM 130 mmol/L (136-145); TOTAL PROTEIN 7.6 gm/dL (6.4-8.2); VALPROIC ACID (DEPAKENE) 52.1 ug/ml (50-100)
== END | disposition home or self-care (01) ==
LOC: LAB 18:37
PROVIDERS: ATTEND Registered Nurse Psychiatric/Mental Health
DX: F31.32 Bipolar disorder, current episode depressed, moderate (principal)

== ENCOUNTER → 2021-01-16 | Outpatient (CLI) | payer MEDICARE ==
[2021-01-19 04:06] LABS: METHYLMALONIC ACID 132 nmol/L (0-378)
== END | disposition home or self-care (01) ==
LOC: LAB 12:08
PROVIDERS: ATTEND Physician Assistant Medical
DX: G30.8 Other Alzheimer's disease (principal); F02.81 Dementia in other diseases classified elsewhere, unspecified severity, with behavioral disturbance; I10 Essential (primary) hypertension; Z79.899 Other long term (current) drug therapy

== ENCOUNTER 2021-05-20 15:28 | Emergency (ER) | payer MEDICARE ==
[~2021-05-20] VITALS: Ht 167.6 cm; Wt 77.1 kg
[2021-05-20 17:01] LABS: BILIRUBIN Negative (Negative); BLOOD Negative (Negative); CLARITY Clear (Clear); COLOR Yellow (Yellow); GLUCOSE Negative (Negative); KETONE Negative (Negative); LEUKO ESTERASE Negative (Negative); NITRITE Negative (Negative); UROBILINOGEN 0.2 E.U./dl (0.0-1.0)
[2021-05-20 17:13] LABS: MUCOUS TRACE; WBC 0-2 wbc/hpf (0-5)
== END 2021-05-20 17:22 | disposition home or self-care (01) ==
LOC: ED 15:28
PROVIDERS: Student in an Organized Health Care Education/Training Program
DX: M54.50 Low back pain, unspecified (principal); Z88.2 Allergy status to sulfonamides; Z88.6 Allergy status to analgesic agent; Z79.899 Other long term (current) drug therapy; Z90.89 Acquired absence of other organs; Z98.890 Other specified postprocedural states

== ENCOUNTER → 2021-08-17 | Outpatient (CLI) | payer MEDICARE ==
[2021-08-17 13:48] LABS: BASO % 0.7 % (0.0-1.0); EOS # 0.3 10*3/uL (0.0-0.4); EOS % 5.2 % (1.0-4.0); HEMATOCRIT 40.6 % (37.0-47.0); LYMPH # 1.8 10*3/uL (1.3-4.4); LYMPH % 33.1 % (27.0-41.0); MEAN CELL VOLUME 85.5 fl (81.0-99.0); MEAN CORPUSCULAR HGB 28.2 pg (27.0-31.0); MEAN PLATELET VOLUME 8.5 fl (9.6-12.3); MONO # 0.5 10*3/uL (0.1-1.0); MONO % 8.6 % (3.0-9.0); NEUT # 2.8 10*3/uL (2.3-7.9); NEUT % 51.8 % (47.0-73.0); PLATELET COUNT AUTOMATED 199 10*3/uL (130-400); RED BLOOD COUNT 4.75 10*6/uL (4.10-5.10); RED CELL DISTRI WIDTH 14.7 % (0-14.5); WHITE BLOOD COUNT 5.4 10*3/uL (4.8-10.8)
[2021-08-17 14:17] LABS: POTASSIUM 4.2 mmol/L (3.5-5.1)
[2021-08-17 14:34] LABS: CREATININE 1.14 mg/dL (0.55-1.02); THYROID STIM HORMONE (HS) 3.49 uIU/ml (0.358-4.75); TOTAL PROTEIN 7.3 gm/dL (6.4-8.2)
== END | disposition home or self-care (01) ==
LOC: LAB 13:30
PROVIDERS: ATTEND Nurse Practitioner Family
DX: I10 Essential (primary) hypertension (principal); E78.2 Mixed hyperlipidemia; E03.9 Hypothyroidism, unspecified; E55.9 Vitamin D deficiency, unspecified

== ENCOUNTER → 2021-12-19 | Outpatient (CLI) | payer MEDICARE ==
[2021-12-19 18:58] LABS: CREATININE 1.13 mg/dL (0.55-1.02); POTASSIUM 3.5 mmol/L (3.5-5.1); TOTAL PROTEIN 7.8 gm/dL (6.4-8.2)
[2021-12-19 19:04] LABS: THYROID STIM HORMONE (HS) 1.42 uIU/ml (0.358-4.75)
== END | disposition home or self-care (01) ==
LOC: LAB 18:16
PROVIDERS: ATTEND Nurse Practitioner Family
DX: I10 Essential (primary) hypertension (principal); E78.2 Mixed hyperlipidemia; E03.9 Hypothyroidism, unspecified; E55.9 Vitamin D deficiency, unspecified

== ENCOUNTER 2022-09-29 18:39 | Emergency (ER) | payer MEDICARE ==
[~2022-09-29] VITALS: Ht 165.1 cm; Wt 90.7 kg
[2022-09-29 19:13] LABS: BASO % 0.6 % (0.0-1.0); EOS # 0.2 10*3/uL (0.0-0.4); EOS % 2.4 % (1.0-4.0); HEMATOCRIT 42.7 % (37.0-47.0); LYMPH # 2.4 10*3/uL (1.3-4.4); LYMPH % 33.9 % (27.0-41.0); MEAN CELL VOLUME 83.1 fl (81.0-99.0); MEAN CORPUSCULAR HGB 28.4 pg (27.0-31.0); MEAN CORPUSCULAR HGB CONC 34.2 g/dl (33.0-37.0); MEAN PLATELET VOLUME 8.8 fl (9.6-12.3); MONO # 0.7 10*3/uL (0.1-1.0); MONO % 10.2 % (3.0-9.0); NEUT # 3.7 10*3/uL (2.3-7.9); NEUT % 52.6 % (47.0-73.0); PLATELET COUNT AUTOMATED 251 10*3/uL (130-400); RED BLOOD COUNT 5.14 10*6/uL (4.10-5.10); RED CELL DISTRI WIDTH 13.2 % (0-14.5); WHITE BLOOD COUNT 7.1 10*3/uL (4.8-10.8)
[2022-09-29 19:36] LABS: ALKALINE PHOSPHATASE 106 U/L (46-116); BUN 23 mg/dl (9-23); CHLORIDE 104 mmol/L (98-107); POTASSIUM 3.5 mmol/L (3.4-5.1); SGPT/ALT 23 U/L (10-49); TOTAL PROTEIN 7.5 gm/dL (6.0-8.0)
[2022-09-29 19:37] LABS: ETHYL ALCOHOL < 3.0 mg/dl (<3)
== END 2022-09-29 21:11 | disposition home or self-care (01) ==
LOC: ED 18:39
PROVIDERS: Internal Medicine
DX: G30.9 Alzheimer's disease, unspecified (principal); F02.818 Dementia in other diseases classified elsewhere, unspecified severity, with other behavioral disturbance; N18.31 Chronic kidney disease, stage 3a; I10 Essential (primary) hypertension; F32.A Depression, unspecified; E78.00 Pure hypercholesterolemia, unspecified; Z79.899 Other long term (current) drug therapy; Z88.2 Allergy status to sulfonamides; Z88.6 Allergy status to analgesic agent; Z90.710 Acquired absence of both cervix and uterus; Z90.89 Acquired absence of other organs; Z98.890 Other specified postprocedural states; Z20.822 Contact with and (suspected) exposure to COVID-19